=== PATIENT | female | born 1970 | race American Indian/Alaskan Native ===

== ENCOUNTER 2021-09-09 12:16 | Emergency (ER) | payer SELFPAY ==
--- NOTE | 2021-09-09 14:58 | Emergency Department Report ---
Minor Respiratory - HPI Chief Complaint: Upper Respiratory Infection Stated Complaint: SHORTNESS OF BREATH Time Seen by Provider: 09/09/21 14:49 Duration: 1 Day Severity: moderate Minor Respiratory: Yes Rhinorrhea (Nasal congestion), Yes Able to Tolerate Fluids, Yes Cough, Yes Shortness of Breath, No Sore Throat, No Ear Pain, No Hemoptysis, No Chest Pain, No Fever Other History: 50-year-old -[place] female presents to the emergency room for 1 day history of shortness of breath chills headache body aches fatigue chest tightness nasal congestion patient is unvaccinated for Covid and has not tested for Covid in the last month. She denies any past medical history. Vital signs are stable. Has been taken [id number] Advil cold and flu. She is able to drink with no nausea and vomiting. Denies any diarrhea or abdominal pain. ED Review of Systems ROS: Stated complaint: SHORTNESS OF BREATH Other details as noted in HPI Comment: All other systems reviewed and negative Constitutional: denies: chills, fever Respiratory: cough, shortness of breath Gastrointestinal: as per HPI Musculoskeletal: myalgia ED Past Medical Hx - Past Medical History Previous Medical History?: No Minor Respiratory Exam - Exam General: Vital signs noted. No distress. Alert and acting appropriately. HEENT: Yes Moist Mucous Membranes, No Pharyngeal Erythema, No Pharyngeal Exudates, No Rhinorrhea, No Conjuctival Injection, No Frontal Tenderness, No Maxillary Tenderness Ear: Neither TM Bulge, Neither TM Erythema, Neither EAC Pain, Neither EAC Discharge Neck: Yes Supple, No Adenopathy Lungs: Yes Good Air Exchange, No Wheezes, No Ronchi, No Stridor, No Cough, No Labored Respirations, No Retractions, No Use of Accessory Muscles, No Other Abnormal Lung Sounds Heart: Yes Regular, No Murmur Abdomen: Yes Normal Bowel Sounds, No Tenderness, No Peritoneal Signs Skin: No Rash, No Edema Neurologic: Alert and oriented, no deficits. Musculoskeletal: Unremarkable. ED Course Vital Signs 09/09/21 14:34 Temperature 98.8 F Pulse Rate 77 Respiratory 16 Rate Blood Pressure 112/82 O2 Sat by Pulse 98 Oximetry ED Medical Decision Making - Medical Decision Making 50-year-old -[place] female presents to the emergency room for 1 day history of shortness of breath chills headache body aches fatigue chest tightness nasal congestion patient is unvaccinated for Covid and has not tested for Covid in the last month. She denies any past medical history. Vital signs are stable. Has been taken [id number] Advil cold and flu. She is able to drink with no nausea and vomiting. Denies any diarrhea or abdominal pain. Patient has symptoms of the URI viral most consistent with Covid as this is a pandemic we are dealing with. I suggest patient to get Covid testing increase her fluids Tylenol or ibuprofen for pain management. [id number] nasal congestion medication such as Sudafed. Critical care attestation.: If time is entered above; I have spent that time in minutes in the direct care of this critically ill patient, excluding procedure time. ED Disposition Clinical Impression: Suspected 2019 novel coronavirus infection Disposition: HOME / SELF CARE / HOMELESS Is pt being admited?: No Does the pt Need Aspirin: No Condition: Stable Instructions: Prevent the Spread of COVID-19 if You Are Sick - CDC, COVID-19: How to Protect Yourself and Others - CDC, COVID-19 Frequently Asked Questions Additional Instructions: Your symptoms appear most consistent with a nonspecific viral syndrome. However, given this current pandemic, COVID-19 is in the differential of possibilities. Despite your previous negative COVID-19 test, I do recommend repeat outpatient Covid 19 testing. In the meantime, isolate/quarantine yourself and stay away from anyone who is elderly, immunocompromised or chronically ill. You can use ibuprofen every 6-8 hours and Tylenol every 4-8 hours, using the dosing on the back of the bottle, as needed for any fever or body aches. Return to the emergency department with any worsening of your symptoms, development of chest pain or shortness of breath, or with any acute distress. Referrals: Your, primary care provider [Other] - 3-5 Days Forms: Work/School Release Form(ED) Time of Disposition: 15:00
[2021-09-09 15:47] VITALS: BP 116/78
== END 2021-09-09 15:46 | disposition home or self-care (01) ==
LOC: ED 12:16
DX: Z20.822 Contact with and (suspected) exposure to COVID-19 (principal)
CPT/HCPCS: 99282